=== PATIENT | female | born 1990 | race Caucasian/White ===

== ENCOUNTER → 2017-02-25 | Outpatient (CLI) | payer OTHER ==
[~2017-02-25] MED LIST: ALDACTONE25 MG PO; B COMPLEX1 EACH PO; BACTRIM DS 8001 TA1 PO; BIOTIN1000 MCG PO; CEPHALEXIN500 M1 PO; NAPROSYN500 MG PO; OXCARBAZEPINE300 MG PO; RISPERDAL M-TAB2 MG PO; VENLAFAXINE HCL75 MG PO
[2017-02-25 11:06] LABS: BASO % 0.3 % (0.0-1.0); EOS # 0.2 10*3/uL (0.0-0.4); EOS % 1.8 % (1.0-4.0); HEMATOCRIT 39.8 % (37.0-47.0); HEMOGLOBIN 13.6 g/dl (12.0-16.0); IG # 0.1 10*3/uL (0.0-0.1); LYMPH # 2.5 10*3/uL (1.3-4.4); LYMPH % 19.7 % (27.0-41.0); MEAN CELL VOLUME 89.6 fl (81.0-99.0); MEAN CORPUSCULAR HGB 30.6 pg (27.0-31.0); MEAN CORPUSCULAR HGB CONC 34.2 g/dl (33.0-37.0); MEAN PLATELET VOLUME 10.2 fl (9.6-12.3); MONO # 0.4 10*3/uL (0.1-1.0); MONO % 3.1 % (3.0-9.0); NEUT # 9.3 10*3/uL (2.3-7.9); NEUT % 74.6 % (47.0-73.0); PLATELET COUNT AUTOMATED 308 10*3/uL (130-400); RED BLOOD COUNT 4.44 10*6/uL (4.10-5.10); RED CELL DISTRI WIDTH 13.7 % (0-14.5); WHITE BLOOD COUNT 12.5 10*3/uL (4.8-10.8)
[2017-02-25 11:11] LABS: BILIRUBIN NEGATIVE (NEGATIVE); BLOOD NEGATIVE (NEGATIVE); CLARITY SL CLOUDY (CLEAR); COLOR YELLOW (YELLOW); GLUCOSE NEGATIVE (NEGATIVE); KETONE NEGATIVE (NEGATIVE); LEUKO ESTERASE NEGATIVE (NEGATIVE); NITRITE NEGATIVE (NEGATIVE); PROTEIN NEGATIVE (NEGATIVE); UROBILINOGEN 0.2 E.U./dl (0.2-1.0)
[2017-02-25 12:20] LABS: BACTERIA TRACE
== END | disposition home or self-care (01) ==
LOC: LAB 09:25
PROVIDERS: Nurse Practitioner Family
DX: D72.829 Elevated white blood cell count, unspecified (principal); F17.200 Nicotine dependence, unspecified, uncomplicated

== ENCOUNTER → 2017-07-02 | Outpatient (CLI) | payer OTHER | END | disposition home or self-care (01) | LOC: RAD 14:26 | DX: M54.2 Cervicalgia (principal); M54.5 Low back pain; R20.0 Anesthesia of skin ==

== ENCOUNTER 2017-08-20 21:30 | Emergency (ER) | payer OTHER ==
[~2017-08-20] VITALS: Ht 157.4 cm; Wt 68.0 kg
[2017-08-20] MEDS ORDERED: Motrin,Rufen800 MG PO (21:41)
[2017-08-20] MEDS ORDERED: CEFADROXIL500 M1 PO (21:41)
== END 2017-08-20 22:22 | disposition home or self-care (01) ==
LOC: ED 21:30
DX: S80.11XA Contusion of right lower leg, initial encounter (principal); F17.200 Nicotine dependence, unspecified, uncomplicated; Z79.899 Other long term (current) drug therapy; X58.XXXA Exposure to other specified factors, initial encounter; Y93.89 Activity, other specified; Y92.9 Unspecified place or not applicable; Y99.9 Unspecified external cause status